=== PATIENT | male | born 1985 | race Caucasian/White ===

== ENCOUNTER 2020-07-13 07:40 | Outpatient (REF) | payer OTHER, SELFPAY ==
[2020-07-13 08:40] LABS: MANUAL DIFF FLAG NO
[2020-07-13 08:41] LABS: Basophils Percent Auto 0.5 % (0-2); Eosinophils Absolute Auto 0.1 X10*3/uL (0.0-0.4); Eosinophils Percent Auto 1.2 % (0-4); Hematocrit 46.5 % (42-52); Hemoglobin 15.2 g/dl (14.0-18.0); Imm Gran Abs Auto 0.01 X10*3/uL (0.00-0.03); Imm Gran Pct Auto 0.2 % (0.0-0.4); Lymphocytes Absolute Auto 2.2 X10*3/uL (1.2-4.9); Lymphocytes Percent Auto 38.9 % (20-40); Mean Corpuscular HGB Conc 32.7 g/dl (31.0-36.0); Mean Corpuscular Hemoglobin 29.3 pg (27.0-33.0); Mean Corpuscular Volume 89.6 fL (80-98); Monocytes Absolute Auto 0.5 X10*3/uL (0.1-1.2); Monocytes Percent Auto 8.8 % (2-11); Neutrophils Absolute Auto 2.9 X10*3/uL (2.0-8.3); Neutrophils Percent Auto 50.4 % (45-73); Platelet Count 217 X10*3/uL (160-400); Red Blood Count 5.19 X10*6/uL (4.60-5.80); Red Cell Distribution Width 12.2 % (11.0-16.0); White Blood Count 5.7 X10*3/uL (4.8-10.8)
[2020-07-13 09:27] LABS: Alanine Aminotransferase 15 U/L (0-40); Albumin Level 4.4 g/dL (3.5-5.0); Alkaline Phosphatase 61 U/L (39-117); Anion Gap 12 (12-20); Aspartate Amino Transferase 19 U/L (5-37); Bilirubin Total 0.5 mg/dL (0.0-1.0); Blood Urea Nitrogen 14 mg/dL (9-16); Calcium 8.8 mg/dL (8.4-10.2); Carbon Dioxide 24 mmol/L (22-29); Chloride 104 mmol/L (96-108); Cholesterol 166 mg/dL; Estimated Glomerular Filt Rate > 60; Glucose Random 93 mg/dL (60-115); HDL Cholesterol 42 mg/dL; LDL Cholesterol Calculated 112 mg/dl; Potassium 4.1 mmol/l (3.3-5.1); Sodium 136 mmol/L (135-145); Total Protein 7.3 g/dL (6.5-8.0); Triglycerides 61 mg/dL
== END 2020-07-13 07:41 | disposition home or self-care (01) ==
LOC: HO.LAB 07:40
PROVIDERS: PCP Internal Medicine; Visit Provider Internal Medicine
DX: Z00.00 Encounter for general adult medical examination without abnormal findings (principal); R10.11 Right upper quadrant pain; Z68.26 Body mass index [BMI] 26.0-26.9, adult; Z82.3 Family history of stroke
CPT/HCPCS: 36415; 80053; 80061; 85025

== ENCOUNTER 2020-07-31 09:10 | Outpatient (REF) | payer OTHER, SELFPAY ==
--- NOTE | 2020-07-31 | US_ITS ---
EXAMINATION: US ABDOMEN COMPLETE CLINICAL INFORMATION: Right upper quadrant pain. COMPARISON: None. TECHNIQUE: Real-time imaging of the abdominal viscera. Technically limited study secondary to bowel gas. FINDINGS: PANCREAS: The body of the pancreas is homogeneous in echotexture. The head and the tail is obscured by overlying gas. ABDOMINAL AORTA: The proximal, mid, and distal segments are normal in caliber. INFERIOR VENA CAVA: Visualized portions are normal. LIVER: Normal. The liver is normal in size. The liver contour is normal. Parenchymal echogenicity is normal. No focal hepatic lesion. There is no intrahepatic biliary duct dilatation seen. GALLBLADDER: The gallbladder is physiologically distended. There are multiple echogenic mobile gallstones present. No evidence of gallbladder wall thickening or pericholecystic fluid. COMMON BILE DUCT: Normal in caliber measuring 0.4 cm in diameter. RIGHT KIDNEY: Normal. No hydronephrosis. No renal calculi or focal parenchymal lesions. The kidney measures 9.0 cm in maximum dimension. LEFT KIDNEY: Normal. No hydronephrosis. No renal calculi or focal parenchymal lesions. The kidney measures 10 cm in maximum dimension. SPLEEN: Normal. The spleen measures 10.4 cm in maximum dimension. FREE FLUID: There is no free fluid. US/US abdomen complete IMPRESSION: Cholelithiasis without wall thickening. No pericholecystic fluid collection or tenderness. Partial visualization of the pancreas is unremarkable. The rest of the abdominal ultrasound is unremarkable.
== END 2020-07-31 09:11 | disposition home or self-care (01) ==
LOC: HO.US 09:10
PROVIDERS: PCP Internal Medicine; Visit Provider Internal Medicine
DX: R10.11 Right upper quadrant pain (principal)
CPT/HCPCS: 76700

== ENCOUNTER → 2021-01-17 09:39 | Outpatient (BNVA) | payer OTHER, SELFPAY | PROVIDERS: PCP Internal Medicine; Visit Provider Surgery | DX: K80.20 Calculus of gallbladder without cholecystitis without obstruction (principal) | CPT/HCPCS: 99202 ==

== ENCOUNTER 2021-02-13 07:28 | Day surgery (SDC) | payer OTHER, SELFPAY ==
[2021-02-06 10:06] VITALS: BMI 25.7
--- NOTE | 2021-02-12 09:03 | HO.ANESPROP2 ---
Documented by User: Jennifer Avalos 02/12/21 09:05 HPI - Anesthesia Eval Consult details Narrative: 35yo M for [facility] Active Problems Active Problems: All Active Problems (Updated 01/17/21 @ 10:03 by Ellis Escoto MD) Gallstones (Acute) Migraine headache (Acute) Past Medical History Medical History Gallstones Migraine headache Family History Family History Mother Skin cancer Surgical History Surgical History History of parotidectomy History of superficial keratectomy History of wisdom tooth extraction Social History Social History Alcohol intake: current Alcohol intake frequency: holidays/special occasions only Patient Tobacco Use Status: Never used Tobacco Use of substances other than those prescribed or required for medical reasons: No Are you DNR?: No Advance Directives: No Advance Directives Information Provided: No Meds Allergies Allergy/AdvReac Type Severity Reaction Status Date / Time No Known Allergies Allergy Verified 02/06/21 10:05 Exam Exam Date and Time: February 12, 2021 0903 Height,Weight and Vital Signs: Height 5 ft 5 in Weight 70.307 kg Pertinent Lab Results Pertinent Lab Results: Laboratory Tests 07/13/20 07/13/20 08:00 08:00 WBC 5.7 Hgb 15.2 Hct 46.5 Plt Count 217 Sodium 136 Potassium 4.1 Chloride 104 Carbon Dioxide 24 BUN 14 Creatinine 0.97 Narrative Narrative: US abdomen complete 07/2020 IMPRESSION: Cholelithiasis without wall thickening. No pericholecystic fluid collection or tenderness. Partial visualization of the pancreas is unremarkable. The rest of the abdominal ultrasound is unremarkable. Assessment and Plan Assessment Anesthesia Assessment: Chart Reviewed Documented by User: Abril Shultz 02/13/21 07:58 PMFSH Past Medical History Medical History Gallstones Migraine headache Family History Family History Mother Skin cancer Surgical History Surgical History History of parotidectomy History of superficial keratectomy History of wisdom tooth extraction Social History Social History Alcohol intake: current Alcohol intake frequency: holidays/special occasions only Patient Tobacco Use Status: Never used Tobacco Use of substances other than those prescribed or required for medical reasons: No Are you DNR?: No Advance Directives: No Advance Directives Information Provided: No Meds Allergies Allergy/AdvReac Type Severity Reaction Status Date / Time No Known Allergies Allergy Verified 02/06/21 10:05 Exam Airway Mallampati Class: II TM Dist: >3cm Neck ROM: Full Assessment and Plan Assessment Anesthesia Assessment: Anesthesia Plan Discussed and Chart Reviewed Final Anesthetic Review NPO: Yes ASA Class: II Final Preanesthetic Review: No Changes in Pt Med Stat, Meds/Allgs Chart Reviewed, Consent Obtained/Reviewed and Anes Risks/Benef Reviewed Patient Risk: Low Procedure Risk: Low Assessment/Block/Sedation in SS: Assess/Block/Sedation-SS Anesthetic Plan Anesthetic Plan: GA Disposition: Standard PACU
[2021-02-13] VITALS (7 sets, daily range): BP systolic 118–145; BP diastolic 63–90; PULSE 55–88; RESP 14–16; TEMP 35.9–36.1; O2SAT 97–99
[2021-02-13] MEDS: Acetaminophen 325 MG TABLET 650 MG PO (07:51)
[2021-02-13] MEDS: Lactated Ringers 1,000 ML 100 ML IVCONT (08:03)
--- NOTE | 2021-02-13 08:14 | MHC.SHP ---
Pre-Procedural Eval Section A Date of Service: 02/13/21 Section B Chief Complaint: Gallstones Allergies: Allergies Allergy/AdvReac Type Severity Reaction Status Date / Time No Known Allergies Allergy Verified 02/06/21 10:05 Plan I have reviewed the history and physical and performed a pertinent physical examination on my patient. No changes have occurred unless specified.
--- NOTE | 2021-02-13 09:44 | P.OP_ITS ---
Operative Note Operative Note Date of Service: 02/13/21 Narrative: Preop diagnosis: Symptomatic gallstones Postop diagnosis: Symptomatic gallstones Procedure: Laparoscopic cholecystectomy Surgeon: Ellis Escoto MD trust operations assistant: MARY Alves The patient is a 35-year-old male with periodic right upper quadrant pain. He had an ultrasound showing gallstones. In view of symptoms, he wanted to proceed with cholecystectomy. He understood technique of laparoscopic cholecystectomy and possible open cholecystectomy. He was aware of the risks, benefits and alternatives, and had given consent He was brought the operating room placed supine the table under general an esthesia via endotracheal tube. The abdomen was prepped and draped in the usual sterile fashion. A surgical time-out was done. The patient received Cefotan 2 g IV preoperatively. A small incision was made in the skin of the supraumbilical margin using a blade 15. And this was carried down through the full-thickness of skin subcutaneous fat down to the fascia. Fascia was incised. The peritoneum was entered. Through this incision, a Vivian port introduced. Pneumoperitoneum was introduced to a pressure of 15 mm hg. From here on the rest of the procedure was done under vision with the laparoscope. With laparoscopic visualization, I inserted a 5/12 the port through a small incision in the epigastric area. 5 mm ports introduced a small incisions below the subcostal margin along the anterior axillary line and the midclavicular line. Graspers were placed through these working ports. The patient is placed in head-up and [id number] position. I was able to apply a grasper on the fundus of the gallbladder and this was used to retract the gallbladder cephalad. There were adherent omentum that there of the gallbladder so I had to carefully separate this using the [place] dissector anterior I was able to complete 3 expose the anterior wall the gallbladder. I was able to apply a grasper at the fundus of the gallbladder and this was used to retract the gallbladder laterally. At this point therefore the gallbladder was being retracted in a lateral and cephalad fashion to put the area of the cystic duct on stretch. I carefully dissected the area of the cystic duct using the [place] dissector anterior I was able to clearly identify the cystic duct along with its confluence with the neck of the gallbladder. By doing so, so I would also able to see the cystic artery. I was able to achieve a critical view of the hepatocystic triangle and there were no other tubular structures in the area. With formation of the anatomy of the cystic duct achieved, proceeded to apply clips with 2 clips being applied distally. The cystic duct was transected between clips with Endo scissors. I carefully divided part of the hilum with the electrocautery spatula. I then proceeded to carefully dissect the cystic artery. Once this was defined, I proceeded to apply clips with 2 clips applied distally. The cystic artery was transected between clips with Endo scissors. I then continued to dissect across the hilum using the electrocautery spatula until was able to reach the interface of the gallbladder wall and the liver bed. I incised the peritoneum of the gallbladder and proceeded to separate the gallbladder from the liver bed along a well-defined plane of dissection using the tip of the spatula bluntly as well as electrocautery itself. I proceeded to separate the gallbladder in this fashion all the way to the fundus until the gallbladder was completely . The gallbladder was retrieved through an endobag through the umbilical incision. I reinserted all ports and insufflated. I examined the subhepatic space and the liver bed. There was note of good hemostasis. I examined all 4 quadrants. There was no other pathology seen. There was no evidence of any bowel injury or any bile leak. Once hemostasis was confirmed, I proceeded to desufflate the port sites and removed all ports under visualization. The umbilical port was removed last. The fascia of the umbilical incision was closed with [id number] Dexon 0 stitch. Skin closure was achieved on all incisions using Dexon 4-0 subcuticular running sutures. Steri-Strips and dressings were applied. The procedure was then completed The patient tolerated the procedure well. No immediate complications were noted. Initial and final counts of sponges and instruments were correct. Denise mated blood loss about 10 cc The patient was extubated without difficulty and transferred to the recovery room with stable vital signs.
--- NOTE | 2021-02-13 09:52 | PM.OP ---
Brief Operative Note Date of Service: 02/13/21 Pre-op diagnosis: Gallstones Post-op diagnosis: same Procedure: Laparoscopic cholecystectomy Surgeon: Ellis Escoto MD Anesthesia: GETA Was an Rod Bending Machine Operator used for this Procedure?: Yes Rod Bending Machine Operator: Demetra Alves Estimated blood loss (mL): 10 Pathology: other (Gallbladder) Condition: stable Disposition: PACU
[2021-02-13] MEDS: oxyCODONE HCl Immed Release 5 MG TABLET PO (10:08)
[2021-02-13] MEDS: Ketorolac Tromethamine 30 MG/ML VIAL IVPUSH (10:08)
== END 2021-02-13 11:10 | disposition home or self-care (01) ==
PROVIDERS: PCP Internal Medicine; Visit Provider Surgery
PROC: 0FT44ZZ Resection of Gallbladder, Percutaneous Endoscopic Approach (ICD-10-PCS; CPT 47562; principal; 2021-02-13 09:10)
DX: K80.10 Calculus of gallbladder with chronic cholecystitis without obstruction (principal); K66.0 Peritoneal adhesions (postprocedural) (postinfection); G43.909 Migraine, unspecified, not intractable, without status migrainosus
CPT/HCPCS: 47562; 88304; J0131; J1100; J1885; J2250; J2405; J3010

== ENCOUNTER → 2021-02-26 08:58 | Outpatient (BNVA) | payer OTHER, SELFPAY | PROVIDERS: PCP Internal Medicine; Referring Provider Internal Medicine; Visit Provider Surgery | DX: Z48.815 Encounter for surgical aftercare following surgery on the digestive system (principal); Z90.49 Acquired absence of other specified parts of digestive tract | CPT/HCPCS: 99212 ==

== ENCOUNTER 2022-01-22 10:18 | Outpatient (REF) | payer BC, SELFPAY ==
[2022-01-22 10:28] LABS: MANUAL DIFF FLAG NO
[2022-01-22 10:51] LABS: Basophils Percent Auto 0.6 % (0-2); Eosinophils Absolute Auto 0.1 X10*3/uL (0.0-0.4); Eosinophils Percent Auto 1.8 % (0-4); Hematocrit 47.6 % (42.0-52.0); Hemoglobin 15.4 g/dl (14.0-18.0); Lymphocytes Absolute Auto 1.7 X10*3/uL (1.2-4.9); Lymphocytes Percent Auto 33.6 % (20-40); Mean Corpuscular HGB Conc 32.4 g/dl (31.0-36.0); Mean Corpuscular Volume 89.6 fL (80.0-98.0); Mean Platelet Volume 10.7 fL (9.4-12.4); Monocytes Absolute Auto 0.5 X10*3/uL (0.1-1.2); Monocytes Percent Auto 10.1 % (2-11); Neutrophils Absolute Auto 2.7 x10*3/uL (2.0-8.3); Neutrophils Percent Auto 53.9 % (45-73); Platelet Count 261 X10*3/uL (160-400); Red Blood Count 5.31 X10*6/uL (4.60-5.80); White Blood Count 4.9 X10*3/uL (4.8-10.8)
[2022-01-22 11:19] LABS: Alanine Aminotransferase 28 U/L (0-40); Albumin Level 4.5 g/dL (3.5-5.0); Alkaline Phosphatase 65 U/L (39-117); Anion Gap 11 (12-20); Aspartate Amino Transferase 27 U/L (5-37); Bilirubin Total 0.9 mg/dL (0.0-1.0); Blood Urea Nitrogen 15 mg/dL (9-16); Calcium 9.2 mg/dL (8.4-10.2); Carbon Dioxide 27 mmol/L (22-29); Chloride 106 mmol/L (96-108); Cholesterol 174 mg/dL; Estimated Glomerular Filt Rate > 60; Glucose Random 88 mg/dL (60-115); HDL Cholesterol 50 mg/dL; LDL Cholesterol Calculated 111 mg/dl; Potassium 4.3 mmol/L (3.3-5.1); Sodium 140 mmol/L (135-145); Total Protein 7.5 g/dL (6.5-8.0); Triglycerides 66 mg/dL
== END 2022-01-22 10:19 | disposition home or self-care (01) ==
LOC: HO.LAB 10:18
PROVIDERS: PCP Internal Medicine; Visit Provider Internal Medicine
DX: Z00.00 Encounter for general adult medical examination without abnormal findings (principal); Z13.31 Encounter for screening for depression; I10 Essential (primary) hypertension
CPT/HCPCS: 36415; 80053; 80061; 85025

== ENCOUNTER 2022-05-30 16:31 | Outpatient (REF) | payer OTHER, SELFPAY ==
[2022-05-31 09:11] LABS: HBS Num1 14.08 mIU/mL (0-7.99); HBc Num1 0.07 S/CO (0.00-0.79); HBsAGNum1 0.16 S/CO (0.00-0.99); Hepatitis A Antibody IgM 0.23 Index (0-0.79); Hepatitis B Core Antibody Nonreactive (Nonreactive); Hepatitis B Surface Antigen Negative (Negative); ~HepC Num1 0.13 S/CO (0.00-0.79); ~Hepatitis A Antibody IgM Nonreactive (Nonreactive); ~Hepatitis B Surface Antibody REACTIVE (Nonreactive); ~Hepatitis C Antibody Nonreactive (Nonreactive)
[2022-06-03 17:27] LABS: Rubella IgG Antibody 3.71 Index
== END 2022-05-30 16:32 | disposition home or self-care (01) ==
LOC: HO.LAB 16:31
PROVIDERS: PCP Internal Medicine; Visit Provider Internal Medicine
DX: Z01.84 Encounter for antibody response examination (principal); Z76.89 Persons encountering health services in other specified circumstances
CPT/HCPCS: 36415; 86704; 86706; 86709; 86735; 86762; 86765; 86787; 86803; 87340

== ENCOUNTER 2023-01-22 10:25 | Outpatient (REF) | payer BC, SELFPAY | END 2023-01-22 10:26 | disposition home or self-care (01) | LOC: HO.10HDL 10:25 | PROVIDERS: Visit Provider Internal Medicine | DX: Z00.00 Encounter for general adult medical examination without abnormal findings (principal); Z13.31 Encounter for screening for depression; Z82.3 Family history of stroke; E78.00 Pure hypercholesterolemia, unspecified | CPT/HCPCS: 36415; 80053; 80061; 85025 ==